=== PATIENT | male | born 1950 | race Caucasian/White ===

== ENCOUNTER 2022-10-18 11:43 | Outpatient (CLI) | payer MEDICARE, BC, SELFPAY ==
[2022-10-18 12:58] LABS: Chloride* 103 mmol/L (96-114); Sodium* 140 mmol/L (135-149)
[2022-10-18 13:01] LABS: Blood Urea Nitrogen* 23 mg/dL (7-30); Calcium* 9.5 mg/dL (8.4-10.6); Carbon Dioxide* 28 mmol/L (20-32); Cholesterol* 169 mg/dL (90-199); Estimated Glomerular Filt Rate 80 ml/min; Glucose* 88 mg/dL (60-115); Triglycerides* 102 mg/dL (40-149)
[2022-10-18 13:02] LABS: HDL Cholesterol* 59 mg/dL (>=40); LDL Cholesterol Calculated 90 mg/dL (<100)
[2022-10-19 17:43] LABS: Sex Hormone Binding Globulin 48 nmol/L (19-76); Testosterone, Adult Male 454 ng/dL (300-720); Testosterone, Free Calculation 68 pg/mL (47-244); Testosterone, Percentage Free 1.5 % (1.6-2.9)
== END 2022-10-18 11:44 | disposition home or self-care (01) ==
PROVIDERS: PCP Internal Medicine; Visit Provider Internal Medicine
DX: Z00.00 Encounter for general adult medical examination without abnormal findings (principal); I10 Essential (primary) hypertension; E78.5 Hyperlipidemia, unspecified; E34.9 Endocrine disorder, unspecified; E66.9 Obesity, unspecified; E80.4 Gilbert syndrome; F41.9 Anxiety disorder, unspecified
CPT/HCPCS: 80048; 80061; 84270; 84402; 84403

== ENCOUNTER 2022-10-23 10:19 | Outpatient (RCR) | payer MEDICARE, BC, SELFPAY ==
[2022-10-23 11:07] LABS: Basophils Absolute Auto 0.01 K/uL (0.00-0.30); Basophils Percent Auto 0.2 % (0.0-3.0); Eosinophils Absolute Auto 0.09 K/uL (0.00-0.50); Eosinophils Percent Auto 1.8 % (0.0-7.0); Hematocrit 46.2 % (37.0-53.0); Hemoglobin* 15.5 gm/dL (13.5-17.5); Immature Granulocytes Abs Auto 0.01 K/uL (0.00-0.30); Immature Granulocytes Pct Auto 0.2 %; Lymphocytes Absolute Auto 1.51 K/uL (0.90-2.90); Lymphocytes Percent Auto 30.8 % (20-44); Mean Corpuscular HGB Conc 34 gm/dL (32-36); Mean Corpuscular Hemoglobin 30 pg (26-34); Mean Corpuscular Volume 90 fL (80-100); Monocytes Percent Auto 9.6 % (0.0-11.0); Neutrophils Absolute Auto 2.81 K/uL (1.7-7.0); Neutrophils Percent Auto 57.4 % (42.0-72.0); Platelet Count* 156 K/uL (140-440); Red Blood Count 5.12 m/uL (4.30-5.90)
[2022-10-23 11:11] LABS: Slide Review Reflex No
[2022-10-23 11:40] LABS: Albumin* 4.2 g/dL (3.3-5.0); Chloride* 107 mmol/L (96-114); Potassium* 4.3 mmol/L (3.6-5.1); Sodium* 139 mmol/L (135-149)
[2022-10-23 11:42] LABS: Creatinine* 0.9 mg/dL (0.5-1.5); Estimated Glomerular Filt Rate 91 ml/min
[2022-10-23 11:43] LABS: Alanine Aminotransferase* 26 U/L (4-50); Alkaline Phosphatase* 59 U/L (40-150); Aspartate Amino Transferase* 35 U/L (12-35); Bilirubin Total* 1.4 mg/dL (0.1-1.5); Blood Urea Nitrogen* 24 mg/dL (7-30); Calcium* 8.8 mg/dL (8.4-10.6); Carbon Dioxide* 27 mmol/L (20-32); Glucose* 90 mg/dL (60-115); Total Protein* 6.7 g/dL (6.0-8.3)
== END 2023-04-21 23:59 | disposition home or self-care (01) ==
LOC: CCIC 10:19
PROVIDERS: PCP Internal Medicine; Referring Provider Internal Medicine; Visit Provider Internal Medicine Hematology & Oncology
DX: C20 Malignant neoplasm of rectum (principal); G62.9 Polyneuropathy, unspecified
CPT/HCPCS: 36415; 80053; 85025; 99212; 99214

== ENCOUNTER 2023-10-03 12:33 | Outpatient (RCR) | payer MEDICARE, BC, SELFPAY ==
[2023-10-03 13:15] LABS: Basophils Absolute Auto 0.02 K/uL (0.00-0.30); Basophils Percent Auto 0.3 % (0.0-3.0); Eosinophils Absolute Auto 0.06 K/uL (0.00-0.50); Eosinophils Percent Auto 0.9 % (0.0-7.0); Hematocrit 47.7 % (37.0-53.0); Hemoglobin* 15.8 gm/dL (13.5-17.5); Immature Granulocytes Abs Auto 0.01 K/uL (0.00-0.30); Immature Granulocytes Pct Auto 0.2 %; Lymphocytes Absolute Auto 1.52 K/uL (0.90-2.90); Lymphocytes Percent Auto 23.8 % (20-44); Mean Corpuscular HGB Conc 33 gm/dL (32-36); Mean Corpuscular Hemoglobin 30 pg (26-34); Mean Corpuscular Volume 91 fL (80-100); Monocytes Percent Auto 8.8 % (0.0-11.0); Neutrophils Absolute Auto 4.21 K/uL (1.7-7.0); Platelet Count* 199 K/uL (140-440); Red Blood Count 5.27 m/uL (4.30-5.90); White Blood Count* 6.38 K/uL (4.50-11.00)
[2023-10-03 13:19] LABS: Slide Review Reflex No
[2023-10-03 13:22] LABS: Albumin* 4.4 g/dL (3.3-5.0); Chloride* 105 mmol/L (96-114)
[2023-10-03 13:23] LABS: Potassium* 3.8 mmol/L (3.6-5.1); Sodium* 138 mmol/L (135-149)
[2023-10-03 13:25] LABS: Anion Gap 9 mEq/L (7-15); Aspartate Amino Transferase* 30 U/L (12-35); Bilirubin Total* 1.9 mg/dL (0.1-1.5); Carbon Dioxide* 24 mmol/L (20-32); Creatinine* 0.9 mg/dL (0.5-1.5); Estimated Glomerular Filt Rate 91 ml/min
[2023-10-03 13:26] LABS: Alanine Aminotransferase* 33 U/L (4-50); Alkaline Phosphatase* 60 U/L (40-150); Blood Urea Nitrogen* 21 mg/dL (7-30); Calcium* 9.1 mg/dL (8.4-10.6); Glucose* 85 mg/dL (60-115)
== END 2024-03-31 23:59 | disposition home or self-care (01) ==
LOC: CCIC 12:33
PROVIDERS: PCP Internal Medicine; Referring Provider Internal Medicine; Visit Provider Internal Medicine Hematology & Oncology
DX: C20 Malignant neoplasm of rectum (principal); G62.0 Drug-induced polyneuropathy; T45.1X5A Adverse effect of antineoplastic and immunosuppressive drugs, initial encounter; E80.4 Gilbert syndrome; R19.7 Diarrhea, unspecified
CPT/HCPCS: 36415; 80053; 85025; 99212; 99214

== ENCOUNTER 2023-10-17 07:34 | Outpatient (CLI) | payer MEDICARE, BC, SELFPAY ==
--- OUTSIDE RECORDS SUMMARY | 2023-10-18 14:46 | XMS_ITS | Continuity of Care Document ---
Author Name Unknown Organization Z [facility] Address [address] [place] [address] Phone Care Team Providers Care Senior Oracle Soa Developer Name Role Phone Unavailable Unavailable Unavailable Advance Directives Directive Yes / No Effective Date File Name No Information Encounters Encounter Description Practice Location Reason(s) For Visit Diagnoses Date Provider Providers Copied on Encounter Z [facility] [place], [address], [place], [address], [place] tel:[phone] [facility] No Information No Information Family History Family Member Type Diagnosis Age At Onset No Information Payers Payer name Insurance type Covered green party ID Authoriza tion(s) No Information Social History Type Description Quantity Date Captured Comments Sex Male Smoking Status No Information Chief Complaint And Reason For Visit No Information Reason For Referral Reason For Referral No Information History Of Present Illness Encounter Date Complaint History Of Prese nt Illness No Information Functional Status Date Functional Assessmen t No Information Instructions Date Instruction Additional Infor mation No Information Assessments Type Assessment Date No Information Patient Care Teams Name Effective Dates (start - stop) Status Members No Information
== END 2023-10-17 07:35 | disposition home or self-care (01) ==
LOC: NFLDREF 10-18 14:42
PROVIDERS: PCP Internal Medicine; Referring Provider Internal Medicine; Visit Provider Internal Medicine
DX: Z00.00 Encounter for general adult medical examination without abnormal findings (principal); E78.5 Hyperlipidemia, unspecified; E34.9 Endocrine disorder, unspecified; I10 Essential (primary) hypertension; E66.9 Obesity, unspecified; F41.9 Anxiety disorder, unspecified
CPT/HCPCS: 80048; 80061; 84270; 84402; 84403

== ENCOUNTER 2024-10-21 08:38 | Outpatient (RCR) | payer MEDICARE, BC, SELFPAY ==
[2024-10-21 09:03] LABS: Basophils Absolute Auto 0.02 K/uL (0.00-0.30); Basophils Percent Auto 0.4 % (0.0-3.0); Eosinophils Absolute Auto 0.09 K/uL (0.00-0.50); Eosinophils Percent Auto 1.7 % (0.0-7.0); Hematocrit* 48.3 % (37.0-53.0); Immature Granulocytes Abs Auto 0.01 K/uL (0.00-0.30); Immature Granulocytes Pct Auto 0.2 %; Lymphocytes Absolute Auto 1.48 K/uL (0.90-2.90); Lymphocytes Percent Auto 27.3 % (20-44); Mean Corpuscular HGB Conc 33 gm/dL (32-36); Mean Corpuscular Hemoglobin 30 pg (26-34); Mean Corpuscular Volume 90 fL (80-100); Monocytes Percent Auto 7.6 % (0.0-11.0); Neutrophils Absolute Auto 3.41 K/uL (1.7-7.0); Neutrophils Percent Auto 62.8 % (42.0-72.0); Platelet Count* 162 K/uL (140-440); RDW Coefficient of Variation % 12.9 % (11.5-15.5); Red Blood Count* 5.34 m/uL (4.30-5.90); White Blood Count* 5.42 K/uL (4.50-11.00)
[2024-10-21 09:07] LABS: Slide Review Reflex No
[2024-10-21 09:27] LABS: Chloride* 106 mmol/L (96-114)
[2024-10-21 09:28] LABS: Sodium* 142 mmol/L (135-149)
[2024-10-21 09:30] LABS: Alanine Aminotransferase* 25 U/L (4-50); Alkaline Phosphatase* 62 U/L (40-150); Anion Gap 5 mEq/L (7-15); Aspartate Amino Transferase* 30 U/L (12-35); Bilirubin Total* 1.3 mg/dL (0.1-1.5); Blood Urea Nitrogen* 23 mg/dL (7-30); Carbon Dioxide* 31 mmol/L (20-32); Creatinine* 1.1 mg/dL (0.5-1.5); Est. Creatinine Clearance* 67.59; Estimated Glomerular Filt Rate 71 ml/min; Total Protein* 6.7 g/dL (6.0-8.3)
[2024-10-21 09:31] LABS: Glucose* 94 mg/dL (60-115)
[2024-10-21 09:36] LABS: Albumin* 4.1 g/dL (3.3-5.0)
== END 2025-04-19 23:59 | disposition home or self-care (01) ==
LOC: CCIC 08:38
PROVIDERS: Physician Assistant; PCP Internal Medicine; Referring Provider Internal Medicine; Visit Provider Internal Medicine Hematology & Oncology
DX: C20 Malignant neoplasm of rectum (principal); E78.5 Hyperlipidemia, unspecified
CPT/HCPCS: 36415; 80053; 80061; 84270; 84402; 84403; 85025; 99213; G0463

== ENCOUNTER 2024-10-21 08:51 | Outpatient (CLI) | payer MEDICARE, BC, SELFPAY | END 2024-10-21 08:52 | disposition home or self-care (01) | LOC: NFLDREF 10-23 07:57 | PROVIDERS: PCP Internal Medicine; Referring Provider Internal Medicine; Visit Provider Internal Medicine | DX: E34.9 Endocrine disorder, unspecified (principal); E78.5 Hyperlipidemia, unspecified; I10 Essential (primary) hypertension | CPT/HCPCS: 36415; 80048; 80053; 80061; 84270; 84402; 84403; 85025; G0463 ==

== ENCOUNTER 2025-06-04 12:05 | Emergency (ER) | payer MEDICARE, BC, SELFPAY ==
--- OUTSIDE RECORDS SUMMARY | 2025-06-04 12:07 | XMS_ITS | Clinical Summary ---
Author Organization [facility] Address [address] , [address] [place] [address] Phone Care Team Providers Care Supervisor Tank Cleaning Name Role Phone [facility] Unavailable Unava ilable Conditions or Problems Problem Name Problem Code Onset Date Status Entry Date Provider Comment Standard Description Annotate Foot pain, right 46543516 (SNOMED CT) 11/27 Active 11/27 Jakob Deluca MD Foot pain Obstructive sleep apnea (mild/mod; AHI 6; RDI 21; taryn 88%) 31345437 (SNOMED CT) 04/23 Active 04/24 Lauro Villalba Jr, MD Obstructive sleep apnea syndrome Sleep maintenance insomnia G47.00 (ICD-10-C M) 04/23 Active 04/24 Lauro Villalba Jr, MD Insomnia, unspecified Snoring 95353494 (SNOMED CT) 04/23 Active 04/24 Lauro Villalba Jr, MD Snoring DRUG TOXICITY POLYNEUROPATHY G62.0 (ICD-10-C M) 06/12 Active 06/12 Jakob Deluca MD Drug-induced polyneuropathy Medications Medication Instructions Start Date Stop Date Generic Name [facility] Provider GABAPENTIN 600 MG TABS 1po tid GABAPENTIN 48178678077 Chloe Espinal RN BUSPIRONE HCL 5 MG TABS 1 pill 3 times daily BUSPIRONE HCL 80103853533 Jakob Deluca MD KETAMINE TOPICAL OINTMENT 8% apply to painful area 3-4 times daily KETAMINE TOPICAL OINTMENT 8% Jakob Deluca MD GABAPENTIN 600 MG TABS 1 po four times per day GABAPENTIN 52179433007 Jakob Deluca MD NORTRIPTYLINE HCL 10 MG CAPS Week #1 take 1 in PM, then Week #2 and on take 2 in PM NORTRIPTYLINE HCL 11748465625 Jakob Deluca MD KETAMINE TOPICAL OINTMENT 8% apply to painful area 3-4 times daily KETAMINE TOPICAL OINTMENT 8% Jakob Deluca MD NORTRIPTYLINE HCL 10 MG CAPS Week #1 take 1 in PM, then Week #2 and on take 2 in PM NORTRIPTYLINE HCL [id number] Jakob Deluca MD ALPHA LIPOIC ACID CAPS ALPHA-LIPOIC ACID CAPS 36941847784 Jakob Deluca MD GABAPENTIN 600 MG TABS 6 po daily GABAPENTIN 28443707250 Jakob Deluca MD LABETALOL HCL 200 MG TABS 1/2 pill twice daily LABETALOL HCL 16851296971 Jakob Deluca MD FOLIC ACID 400 MCG 1 daily FOLIC ACID 400 MCG Jakob Deulca MD DIPHENOXYLATE-AT ROPINE 2.5-0.025 MG TABS 2 in AM, 1 in PM and 1 at hs DIPHENOXYLATE-AT ROPINE 42008299171 Jakob Deluca MD LABETALOL HCL 200 MG TABS 1/2 pill twice daily LABETALOL HCL 90933725515 Jakob Deluca MD SIMVASTATIN 20 MG TABS 1 daily SIMVASTATIN 35369046638 Jakob Deluca MD LIPITOR TABS ATORVASTATIN CALCIUM TABS 67870772344 Jakob Deluca MD LISINOPRIL 10 MG TABS 1 daily LISINOPRIL 46195299539 Jakob Deluca MD LABETALOL HCL TABS LABETALOL HCL TABS 78380633946 Jakob Deluca MD GABAPENTIN 600 MG TABS 8 po daily GABAPENTIN 41340683439 Jakob Deluca MD NORMYDINE NORMYDINE Jakob Deluca MD LABETALOL HCL TABS LABETALOL HCL TABS 12894666610 Jakob Deluca MD TRIAMTERENE-HCTZ 37.5-25 MG TABS every other day TRIAMTERENE-HCTZ 30157775083 Jakob Deluca MD LIDODERM 5 % PTCH apply 1/2 to 1 patch on each foot LIDOCAINE 74635088778 Jakob Deluca MD GABAPENTIN 300 MG CAPS 3 po tid GABAPENTIN 61995675171 Jakob Deluca MD VOLTAREN 1 % GEL apply 1 - 2 grams to painful areas on each foot up to 4 times a day DICLOFENAC SODIUM 76628887414 Jakob Deluca MD VOLTAREN 1 % GEL apply 1 - 2 grams to painful areas on each foot up to 4 times a day DICLOFENAC SODIUM 45714392230 Jakob Deluca MD TRAZODONE HCL 100 MG TABS 2 po qhs TRAZODONE HCL 46927138894 Jakob Deluca MD GABAPENTIN 600 MG TABS 2 po tid GABAPENTIN 60412011314 Jakob Deluca MD LIDODERM 5 % PTCH apply 1/2 to 1 patch on each foot LIDOCAINE 93314812035 Jakob Deluca MD GABAPENTIN 600 MG TABS 1 po qid GABAPENTIN 88404603651 Jakob Deluca MD GABAPENTIN 300 MG CAPS 3 po tid GABAPENTIN 46032397178 Jakob Deluca MD ASPIRIN 81 MG TBEC 1 daily ASPIRIN 61266293367 Jakob Deluca MD TESTOSTERONE ENANTHATE SOLN TESTOSTERONE ENANTHATE OIL 04949706256 Jakob Deluca MD NEURONTIN 300 MG CAPS 4 po tid GABAPENTIN 18386047103 Jakob Deluca MD NORTRIPTYLINE HCL 10 MG CAPS Week #1 take 1 po qhs, then Week #2 take 2 po qhs, Week #3 take 3 po qhs, and Week #4 and on take 4 po qhs. NORTRIPTYLINE HCL 43349177050 Jakob Deluca MD CYMBALTA 20 MG CPEP Week #1 take 1 po qhs, then Week #2 take 2 po qhs, then Week #3 and on take 3 po qhs DULOXETINE HCL 68801861414 Jakob Deluca MD GABAPENTIN 600 MG TABS 1 po qid GABAPENTIN 63131715077 Jakob Deluca MD NORTRIPTYLINE HCL 10 MG CAPS Week #1 take 1 po qhs, then Week #2 take 2 po qhs, Week #3 take 3 po qhs, and Week #4 and on take 4 po qhs. NORTRIPTYLINE HCL 95870459880 Jakob Deluca MD NEURONTIN 300 MG CAPS 4 po tid GABAPENTIN 26648515288 Jakob Deluca MD NORMYDINE NORMSHIRA Deluca MD TRIAMTERENE-HCTZ 37.5-25 MG TABS normadyne TRIAMTERENE-HCTZ 53105698278 Jakob Deluca MD LIPITOR TABS ATORVASTATIN CALCIUM TABS 17205856876 Jakob Deluca MD VIAGRA 50 MG TABS 1 po 30 - 60 minutes prior to intercourse SILDENAFIL CITRATE 90420109535 Jakob Deluca MD LEXAPRO 10 MG TABS 1 po daily ESCITALOPRAM OXALATE 04181462556 Jakob Deluca MD CYMBALTA 20 MG CPEP Week #1 take 1 po qhs, then Week #2 take 2 po qhs, then Week #3 and on take 3 po qhs DULOXETINE HCL 86210867354 Jakob Deluca MD VIAGRA 50 MG TABS 1 po 30 - 60 minutes prior to intercourse SILDENAFIL CITRATE 35642182609 Jakob Deluca MD NEURONTIN 300 MG CAPS 3 po tid GABAPENTIN 71331502562 Jakob Deluca MD NEURONTIN 300 MG CAPS 2 po tid GABAPENTIN 83396853580 Jakob Deluca MD LEXAPRO 10 MG TABS 1 po daily ESCITALOPRAM OXALATE 31306269193 Jakob Deluca MD CYMBALTA 30 MG CPEP 1 po qhs for 2 weeks DULOXETINE HCL 79680242533 Chloe Espinal RN CYMBALTA 60 MG CPEP 1 po qhs beginning in Week #3 and thereafter DULOXETINE HCL 31739329739 Jakob Deluca MD CYMBALTA 30 MG CPEP 1 po qhs for 2 weeks DULOXETINE HCL 22105915958 Jakob Deluca MD Medications Administered No information available. Allergies, Adverse Reactions, Alerts Allergy Name Reaction Description Start Date Severity Statu s Provider LATEX Critical Active Jakob Deluca MD Results Date Name Value Unit Range Flag Description Rx Refill: eRx Request for G ABAPENTIN 600MG [facility]_RR [id number] 24Z`GABAPENTIN 600MG```720``XAVI E 8 TABLETS DAILY DIRECTED`Generic For:*NEURONTIN 600MG TABS Generic For:*NEURONTIN 600MG TABS`4`0`3876500 2`[id number]`[facility] #*`[phone]` [id number]`` B e-scripts messen tiki refill request Internal Other: Authorizatio n - OBS PTSTAUTHDT 1 N PT Startin g Authorization Date Office Visit: NSLE SMOK STATUS Never smoker 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 NANCIE Fall Risk Screening completed. Fall risk assess ment MEDS REVIEW Done Documenta tion of current medications (procedure) Internal Other: Verbal Autho rization/Emergency Contact - OBS VERBAL_EMER DONE Verbal au thorization and emergency contact Internal Other: Authorizatio n - OBS [id number] Yes GE use only - for Link[employer]ic import when terms are not otherwise specified HIECONSENT Yes Consent To Release information to the [employer] Information [employer] ([employer]) Plan of Care Type Date Detail Pending order MRI-Lumbar W/WO Pending order Physical Therapy Pending order Follow up Pending order Follow up Pending Order exclud ed from report: Pending order Other Referral Pending order Follow up Pending order Patient Instruct ions Pending order Other Referral Pending Order exclud ed from report: Pending order Follow up Pending order Sleep Study - AP NA Pending order Consult Pending order Follow up Patient education Buspirone%20(O ral)%20(Tablet) Procedures Code Procedure Name Date Entry Date [id number] MRI-Lumbar W/WO ORDERS Physical Therapy ORDERS Follow up ORDERS Follow up [facility]-[id number] Documentation of current medicatio ns ORDERS Follow up ORDERS Patient Instructions ORDERS Follow up SCT-[id number] Documentation of current medicatio ns SCT-[id number] Other Referral SCT-[id number] Other Referral CPT-80764 PSG, with CPAP - 6yrs or older ([id number]) 20 20/04/20 ORDERS Sleep Study - APNA 2 SCT-[id number] Documentation of current medicatio ns SCT-520552530 Consult SCT-[id number] Documentation of current medicatio ns SCT-[id number] Documentation of current medicatio ns SCT-[id number] Documentation of current medicatio ns A9579 ProHance Nasir-based MR Contrast, 20 ml via l CPT-24103 MRI Pelvis (With & Without Contrast) 2010 CPT-84995 MRI Lumbar (With & Without Contrast) 2010 Vital Signs Date Name Value Unit Description Height 73 [in_us] height E&M BMI (Body Mass Index) 30.19 kg/m2 Bod y Mass Index (Ratio) BP Diastolic 72 mm[Hg] blood pressu re, diastolic BP Systolic 118 mm[Hg] blood pressur e, systolic Respiratory Rate 16 /min respirat ory rate E&M Weight Measured 228 [lb_av] weight E& M Weight Measured 228 [lb_av] weight E& M Heart Rate 60 /min pulse rate Immunizations No information available. Advance Directives No information available.
--- OUTSIDE RECORDS SUMMARY | 2025-06-04 12:08 | XMS_ITS | Clinical Summary ---
Author Organization [facility] Address [address] [place] [address] Care Team Providers Care Speech/Language Therapist Name Role Phone Ksenia Mcedrmott MD Primary Care Provider [phone] Allergies Active Allergy Reactions Criticality Noted Date Comments Adhesive Tape Rash 10/17/2005 Latex Rash High 09/11/2021 Penicillins Rash High 06/14/2005 Pt. states he has taken amoxicillin Medications simvastatin (ZOCOR) 20 mg tablet Take 20 mg by mouth at bedtime. Active CYANOCOBALAMIN, VITAMIN B-12, (VITAMIN B-12 ORAL) Take by mouth. Activ e aspirin chewable 81 mg chewable tabletIndication s:myocardial infarction prevention Take 81 mg by mouth once daily with a meal. Indications: MYOCARDIAL INFARCTION PREVENTION Active vitamin D3-vitamin K2, MK4, 1,000-100 unit-mcg tab Take 1 tablet by mouth once daily. 0 7 Active losartan (COZAAR) 50 mg tablet Take 50 mg by mouth once daily. 10 8 Active Testosterone 50 mg/5 gram (1 %) gel APPLY 5GM (1 TUBE) TO SHOULDERS & UPPER ARM EVERY MORNING 5 8 Active triamterene-hydr ochlorothiazide, 37.5-25 mg, (MAXZIDE-25) 37.5-25 mg tablet TAKE ONE TABLET EVERY OTHER DAY FOR BLOOD PRESSURE 2 8 Active Elevated Toilet Seat with ArmsIndications: Muscle tear For home use. 1 Device 1 Active latanoprost (XALATAN) 0.005 % ophthalmic solution Active escitalopram oxalate (LEXAPRO) 10 mg tablet 1 Active cholecalciferol (VITAMIN D3) 1,000 unit tablet once daily. Active tamsulosin (FLOMAX) 0.4 mg capsule Take 1 Capsule by mouth once daily. 3 Active LORazepam (ATIVAN) 0.5 mg tab TAKE ONE TABLET BY MOUTH TWICE DAILY NEEDED FOR ANXIETY MAY TAKE 1 ADDITIONAL TABLET AT BEDTIME NEEDED Active tolterodine (DETROL) 2 mg tablet Take 1 tablet twice a day by oral route for 90 days. 3 Active polyethylene glycol-electroly te (GOLYTELY) 236-22.74-6.74 -5.86 gram suspensionIndica tions:Encounter for screening colonoscopy Drink 2 liters (half the bottle) the day before colonoscopy and 2 liters (remaining prep) 6 hours prior to colonoscopy appointment. 4000 mL 4 Active omeprazole (PRILOSEC) 20 mg Delayed-Release capsuleIndicatio ns:Chronic diarrhea,H. pylori infection Take 1 Capsule (20 mg) by mouth two times daily before meals. 10 Capsule 3 4 Active Active Problems Problem Noted Date Diagnosed Date H. 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 09/17/2006 Polyneuropathy in other diseases classified else where 08/07/2006 Overview (09/19/2006): due to ChemoRx Malignant neoplasm of rectum 10/17/2005 Overview (01/24/2024): presented for surgical resection 10/17/2005 s/p Radiation Therapy & Chemo Rx Colonoscopy 01/2024 SSA, repeat in 5 years Resolved Problems Problem Noted Date Diagnosed Date Resolved Date Unspecified intestinal obstruction 08/14/2006 09/18/2006 Overview (08/14/2006): presented with pain, nausea & vomiting 08/13/2006 Fitting and adjustment of ot her gastrointestinal appliance and device 08/07/2006 Overview (08/07/2006): Ileostomy take down 08/07/2006 Immunizations Immunization Administration Dates Next Due COVID-19 vaccine (Moderna 10 0mcg/0.5mL) PF, MDV 08/30/2021,2021,12/16/2020 Influenza A (H1N1), Inactiva jennifer (Age >=3 Years) 09/04/2011 Influenza, High-dose Quadriv alent Inactivated 10/05/2021,08/31/2020 Influenza, IIV4 10/05/2021,08/31/2020,09/04/2011 Pneumococcal conj 13-Valent (Prevnar 13) 021 Tdap 10/29/2018 Zoster (Shingrix-RZV, recombinant) 10/30/2020, Zoster (Zostavax-ZVL, live) 04/25/2014 Family History Medical History Relation Name Comments Heart Disease Father in his sl eep 10/15/2005! Cancer-breast Mother at age 82 Good Health Sister age 52 as of Relation Name Status Comments Father Mother Sister Social History Tobacco Use Types Packs/Day Years Used Date Smoking Tobacco: Never Smokeless Tobacco: Never Tobacco Cessation:Counseling Given: Yes Alcohol Use Standard Drinks/Week Comments Yes 0 (1 standard drink = 0.6 oz pur e alcohol) socially Social Connections Answer Date Recorded Frequency of Communication with Friends and Fami ly Not on file 11/03/2021 Financial Resource Strain Answer Date R ecorded Difficulty of Paying Living Expenses Not on file 11/03/2021 Difficulty of Paying Living Expenses Not on file 11/03/2021 Sex and Gender Information Value Date Recorded Sex Assigned at Not on file Legal Sex Male 5:25 AM BRIEF WRITER Gender Identity Not on file Sexual Orientation Not on file Occupation Industry Job Start Date Job End Date [employer] Not on file Not on file Not on file Obstetrics History Last Filed Vital Signs Vital Sign Reading Time Taken Comments Blood Pressure 152/92 02/19/2024 12:59 PM CDT Pulse 81 02/19/2024 12:59 PM CDT Temperature 36.2 C (97.2 F) 01/18/2021 1:48 PM CDT Respiratory Rate 14 01/21/2024 11:32 AM CDT Oxygen Saturation 98% 02/19/2024 12:59 PM CDT Inhaled Oxygen Concentration - - Weight 104.8 kg (231 lb) 02/19/2024 12:59 PM CDT Height 188 cm (6' 2) 01/18/2021 1:48 PM CDT Body Mass Index 29.66 01/18/2021 1:48 PM CDT Plan of Treatment Health Maintenance Due Date Last Done Comments Depression screening for age 12+ 1963 Hepatitis C screening for age 18-79 1969 Lipids for age 45-75 09/17/2011 09/17/2006 Medicare Wellness for age 65+ 01/14/2016 BMI (ht and wt on same day) for age 18+ 01/18/2022 01/18/2021, 04/17/2018, 10/21/2017 Pneumococcal series for age 50+ (2 of 2 - PPSV23) 10/05/2022 10/05/2021 COVID-19 vaccine series ( season) 2024 08/01/2023, 08/15/2022, 02/10/2022, Additional history exists Influenza Vaccine (#1) 2025 , 08/31/2020, 09/04/2011 RSV vaccine for adults or (1 - 1-dose 75+ series) 2026 Tetanus booster 10/29/2028 10/29/2018 Colonoscopy through age 75 01/20/202901/20, 01/21/2024, 01/21/2024, Additional history exists Zoster (shingles) series for age 50+ Completed 10/30/2020, 08/31/2020, 04/25/2014 Hepatitis B series for 19+ Aged Out N o longer eligible based on patient's age to complete this topic Medical Devices Implanted Type Area Research Statistician Device Identifier Shelf Expiration Date Model / Serial / Lot Pump Pain On-Q [id number] - [id number] Implanted:Qty: 1 on 10/17/2005 at [facility] [id number]# / / [id number] Procedures Procedure Name Priority Date/Time Associated Diagnosis Comments COLONOSCOPY SCREENING Routine 01/21/2024 9:53 AM CDT Chronic diarrhea Polyp of colon, unspecified part of colon, unspecified type History of rectal cancer LIPID PANEL Today 09/17/2006 12:28 PM BRIEF WRITER from Last 3 Months or Most Recently Relevant to Health Maintenance Results * COLONOSCOPY (01/21/2024 10:02 AM CDT) 01/21/2024 10:0 2 AM CDT Narrative Transcriptions Pierre Schultz MD - 01/21/2024 11:21 AM CDT Patient Name: Gregorio Cagle Procedure Date: 01/21/2024 Gender: Male Date of : 1950 Admit Type: Outpatient Procedure: Colonoscopy Proceduralist: Pierre Schultz MD , Gwen Fields, RN(Nurse), Kathy Reis (Nurse) Referring MD: Pierre Schultz Indications/Pre-Op Diagnosis: High risk colon cancer surveillance:Personal history of colon cancer, Last colonoscopy: November 2019, Incidental - Chronicdiarrhea Medications: Fentanyl 100 micrograms IV, Midazolam 4 mgIV, The level of sedation administered wasmoderate Procedure Description: The patient had risks, benefits and alternatives explained to andgave informed consent. The patient had a stable cardiopulmonary status and judged an adequate candidate for conscious sedation. The endoscope [id number] was passed through the anus andadvanced to 8 cm into the ileum. The colonoscopy was performed without difficulty. The patient tolerated the procedure well. The quality ofthe bowel preparation was good. The terminal ileum, ileocecal valve, appendiceal orifice, and rectum were photographed. Complications: No immediate complications. Estimated Blood Loss & Specimen: Estimated blood loss: none. Specimen collected - Yes and sent to Laboratory Findings: The perianal and digital rectal examinations were normal. The terminal ileum appeared normal. Biopsies were taken with a cold forceps for histology. A 1 mm polyp was found in the cecum appendiceal orifice. The polypwas sessile. The polyp was removed with a cold biopsy forceps. Resectionand retrieval were complete. A 3 mm polyp was found in the ascending colon. The polyp was sessile. The polyp was removed with a cold biopsy forceps. Resection and retrieval were complete. Scattered medium-mouthed and small-mouthed diverticula were found inthe sigmoid colon, descending colon and ascending colon. There was evidence of a prior end-to-end colo-colonic anastomosis inthe rectum. This was patent and was characterized by healthy appearing mucosa. Biopsies for histology were taken with a cold forceps from the entire colon for evaluation of microscopic colitis. The exam was otherwise without abnormality. Impressions/Post-Op Diagnosis: - The examined portion of the ileum was normal. Biopsied. - One 1 mm polyp in the cecum at the appendiceal orifice, removedwith a cold biopsy forceps. Resected and retrieved. - One 3 mm polyp in the ascending colon, removed with a cold biopsy forceps. Resected and retrieved. - Diverticulosis in the sigmoid colon, in the descending colon and in the ascending colon. - Patent end-to-end colo-colonic anastomosis, characterized byhealthy appearing mucosa. - The examination was otherwise normal. - Biopsies were taken with a cold forceps from the entire colon for evaluation of microscopic colitis. Recommendation: - Patient has a contact number available for emergencies. The signsand symptoms of potential delayed complications were discussed with the patient. Return to normal activities tomorrow. Written discharge instructions were provided to the patient. - Resume previous diet. - Continue present medications. - Await pathology results. - Repeat colonoscopy is recommended. The colonoscopy date will be determined after pathology results from today's exam become available for review. Moderate Sedation: A time out was performed before the procedure. Moderate (conscious) sedation was administered by the endoscopy nurse and supervised bythe endoscopist. The following parameters were monitored: oxygensaturation, heart rate, blood pressure, EKG, CO2, respiratory rate, adequacy of pulmonary ventilation and reponse to care. Please refer to the patient's medical record flowsheets and nursing notes for moderate sedation details. Total physician intraservice time was 35 minutes. Pierre Schultz MD 01/21/2024 11:21:09 AM This report has been signed electronically. Note Initiated On: 01/21/2024 10:02 AM Scope In: 10:40:22 AM Scope Withdrawal Time 0 hours 22 minutes 46 seconds Scope Out: 11:10:19 AM us Pierre Schultz MD PROCEDURE ORD Final Res ult * (ABNORMAL) LIPID PANEL (09/17/2006 12:28 PM BRIEF WRITER) CHOLESTEROL,TOTAL 171 110 - 199 mg/dL [facility] TRIGLYCERIDES 119 40 - 149 mg/dL [facility] HDL CHOLESTEROL 31(L) >40 mg/dL [facility] CHOL/HDL RATIO 5.52(H) <4.51 [facility] LDL CHOLESTEROL 116 <131 mg/dL [facility] PATIENT STATUS Fasting [facility] Blood specimen (specimen) BLOOD SPECIMEN / Unknown 09/17/2006 12:28 PM BRIEF WRITER 09/17/2006 12:19 PM BRIEF WRITER us Lm Vega MD CHEMISTRY Final Result [facility] INTERNAL ZIP [address] [address] from Last 3 Months or Most Recently Relevant to Health Maintenance Insurance MEDICARE PART A HB ONLY MEDICARE PART B HB ONLY MEDICARE PB ONLY [facility] MEDICARE PART B HB ONLY [facility] Member Subscriber Plan / Payer (Ef fective 2013-Present) Name:Gregorio Cagle Relation to Subscriber:Self Name:Gregorio Cagle Payer ID:[id number] (NAIC) Group ID:[id number] Type:Not on file Address: [address] [place] [address] [facility] [employer] [place] Advance Directives * Full Code (Latest Code Status on File) Date Activated Date Inactivated Comments 11/16/2014 12:44 PM 11/16/2014 4:02 PM * Full Code Date Activated Date Inactivated Comments 01/18/2010 1:44 PM 01/21/2010 4:23 PM * Full Code Date Activated Date Inactivated Comments 11/15/2006 2:15 PM 11/16/2006 2:10 AM * Full Code Date Activated Date Inactivated Comments 09/17/2006 8:38 PM 09/20/2006 3:53 PM * Full Code Date Activated Date Inactivated Comments 09/17/2006 11:09 AM 09/17/2006 8:38 PM Care Teams Speech/Language Therapist Relationship Specialty Start Date End Date Ksenia Mcdermott MD [address] [place] [address] PCP - General Internal Medicine 12/11/23
[2025-06-04 12:15] VITALS: BP 144/94; PULSE 94; RESP 20; TEMP 36.1; O2SAT 96; BMI 29.5
--- NOTE | 2025-06-04 12:21 | ED_ITS ---
HPI - General Adult General Date Seen: 06/04/25 Chief complaint: Extremity Pain/Injury, Lower Stated complaint: Chainsaw lac L leg Time Seen by Provider: 06/04/25 12:10 History of Present Illness HPI narrative: 75-year-old gentleman with history of job air syndrome, hyperlipidemia, elevated BMI, BPH, sleep apnea presenting to the ER today with a chain saw injury to his left lower extremity. He was working in his backyard with a chain saw to clear some sticks. Was walking across the back yd when he just lost his balance and brought his hands down accidentally struck his left anterior thigh with a chainsaw as it was running. He tore his pants and suffered injury to his left thigh. Initially when he looked T-cell large area that was covered for blood. He was able to bear weight. He is able to drive here in the car by private car with his . He is not anticoagulated. He is up-to-date on tetanus. Related Data Home Medications ?Medication ?Instructions ?Recorded ?Confirmed cholecalciferol (vitamin D3) 25 1,000 unit PO DAILY 10/26/24 mcg (1,000 unit) tablet tamsulosin 0.4 mg capsule 0.4 mg PO DAILY 10/18/22 acetaminophen 500 mg tablet 500 mg PO Q6H PRN 06/17/23 10/26/24 (Tylenol Extra Strength) naproxen sodium 220 mg tablet 220 mg PO BID PRN 10/26/24 (Aleve) latanoprost 0.005 % eye drops 1 drp ophthalmic (eye) Q PM 10/03/23 10/26/24 aspirin 81 mg chewable tablet 81 mg PO DAILY 10/21/23 10/26/24 Previous Rx's ?Medication ?Instructions ?Recorded escitalopram oxalate 10 mg tablet 10 mg PO .Bedtime #9 0 tabs 10/26/24 losartan 50 mg tablet 50 mg PO DAILY #90 tabs 10/05 01/25 simvastatin 20 mg tablet 20 mg PO .Bedtime #90 tabs 1 12/27/23 triamterene 37.5 1 tab PO DAILY #90 tabs 10/05 01/25 mg-hydrochlorothiazide 25 mg tablet testosterone 50 mg/5 gram (1 %) 50 mg transdermal QAM #150 grams 05/17/25 transdermal gel Allergies Allergy/AdvReac Type Severity Reaction Status Date / Time Penicillins Allergy Verified 10/26/24 08:52 latex AdvReac Verified 10/26/24 08:52 [facility] Medical History History of malignant neoplasm of anus ?Z85.048 - Personal history of other malignant neoplasm of rectum, rectosigmoid junction, and anus (ICD-10) Surgical History Hx of appendectomy ?Z90.49 - Acquired absence of other specified parts of digestive tract (ICD- 10) H/O left knee surgery (01/19/21) ?Z98.890 - Other specified postprocedural states (ICD-10) H/O left knee surgery (03/28/21) ?Z98.890 - Other specified postprocedural states (ICD-10) Social History (Updated 10/21/23 @ 13:27 by Leanne Felipe ~ [facility]) What is your current living situation?: I presently have a place to live Problems where you live: no known problems In the past 12 months, utilities in danger of being shut off: no In past 12 months, lack of transportation kept you from medical appts, meetings, work, or getting things needed for daily living: no In the past 12 mos, have been you worried that your food would run out before you had money to buy more?: never true In the past 12 mos, the food you bought just didn't last and you didn't have money to buy more?: never true Smoking Status: Never smoker How often does anyone, including family, friends and others, physically hurt you : never How often does anyone, including family, friends and others, insult or talk down to you: never How often does anyone, including family, friends and others, threaten you with harm: never How often does anyone, including family, friends and others, scream or curse at you: never Exam Narrative: Exam Narrative: Constitutional: Appears well-developed and well-nourished. Alert. Conversant. Non toxic. Very polite. HENT: Head: Atraumatic. Nose: Nose normal. Mouth/Throat: Oral mucosa is clear and moist. no trismus. Pharynx normal. Tonsils symmetric. No tonsillar enlargement, erythema, or exudate. Eyes: Conjunctivae normal. EOM normal. Pupils equal, round, and reactive to light. No scleral icterus. Neck: Normal range of motion. Neck supple. No tracheal deviation present. Cardiovascular: Normal pink well perfused skin. No active bleeding. Pulmonary/Chest: Effort normal. No stridor. No respiratory distress. Musculoskeletal: RUE: Normal range of motion. No tenderness. No deformity LUE: Normal range of motion. No tenderness. No deformity RLE: Normal range of motion. No edema. No tenderness. No deformity LLE: There is a chainsaw wound to left anterior thigh on the distal 11/07. Fortunately this is a very superficial wound. There are multiple parallel linear superficial abrasions on the skin. One of them barely penetrates to the dermis but the rest of him to not penetrate all the way through the dermis. No active bleeding. No pulsatile bleeding. It does not penetrate through to the quad muscle or down to the deeper tissues. Neurovascularly intact. Normal range of motion in his hip and knee. No edema. No tenderness. No deformity Lymph: No cervical adenopathy. Neurological: Alert and oriented to person, place, and time. Normal strength. CN II-VII intact. No sensory deficit. GCS eye subscore is 4. GCS verbal subscore is 5. GCS motor subscore is 6. Normal coordination Skin: Skin is warm and dry. No rash noted. No pallor. Normal capillary refill. Psychiatric: Normal mood. Normal affect. Const: Vital Signs, click to edit/add: Vital Signs - 24 hr 06/04/25 12:15 Temperature 97.0 F L Pulse Rate [Pulse Oximeter] 94 Respiratory Rate 20 Blood Pressure [Ri ght Upper Arm] 144/94 H Pulse Oximetry 96 Oxygen Delivery Me thod Room Air Course Vital Signs Vital signs: Initial Vital Signs Temperature 97.0 F L 06/04/25 12:15 Temperature Source Temporal Artery Scan 06/04/25 12:15 Pulse Rate 94 06/04/25 12:15 Respiratory Rate 20 06/04/25 12:15 Blood Pressure 144/94 H 06/04/25 12:15 Blood Pressure Mean 110 H 06/04/25 12:15 Blood Pressure Position Sitting 06/04/25 12:15 Pulse Oximetry 96 06/04/25 12:15 Oxygen Delivery Method Room Air 06/04/25 12:15 Vital Signs Temperature 97.0 F L 06/04/25 12:15 Pulse Rate 94 06/04/25 12:15 Respiratory Rate 20 06/04/25 12:15 Blood Pressure 144/94 H 06/04/25 12:15 Pulse Oximetry 96 06/04/25 12:15 Oxygen Delivery Method Room Air 06/04/25 12:15 Temperature 97.0 F L 06/04/25 12:15 Pulse Rate 94 06/04/25 12:15 Respiratory Rate 20 06/04/25 12:15 Blood Pressure 144/94 H 06/04/25 12:15 Pulse Oximetry 96 06/04/25 12:15 Oxygen Delivery Method Room Air 06/04/25 12:15 Medical Decision Making MDM Narrative Medical decision making narrative: Findings and exam are consistent with an a accidental chainsaw wound to his left anterior distal thigh. Although he initially saw all large bloody area at home, after we were able to do wound care here, it turns out that he actually has multiple superficial parallel linear lacerations probably caused by the edge of the teeth on the chain saw blade. Miraculously, this does not really penetrate through the dermis and does not involve his quad muscle or deeper structures.. There is no evidence at this time to suggest any associated fracture or foreign body. There is no evidence to suggest tendon or arterial injury and patient is neurologically in tact. In discussion with the patient his , UA agree that this point the wound will heal fine without sutures.. Indications to seek urgent reevaluation and signs of infection (including but not limited to increasing pain, redness, swelling, fevers, and drainage) were reviewed. Tetanus is up-to-date. This is a clean and non-contaminated wound in which prophylactic antibiotics are not indicated. An understanding of the discharge instructions and need for follow up were verbally confirmed. Discharge Plan Discharge Clinical Impression: Contact with chainsaw as cause of accidental injury Patient Disposition: Home, Self-Care Condition: Stable Instructions: Laceration Without Closure (ED) Additional Instructions: As we discussed, we think these wounds will heal well without needing stitches. You were very jhoan! To care for the wounds, keep the dressing on today and keep the wound clean and covered and dry. Tomorrow you can take the dressing off and wash gently with gauze soaked in warm water (just enough to get scabs or external crusting off). After the wound is clean, gently dry it and then reapply antibiotic ointment and other non adherent dressing. Cover the non adherent dressing with gauze and wrap up her leg to protect the wound. Try not to get the wound submerged under water for 5 days. Monitor the wound carefully. If you notice unusual redness, spreading redness up or down your leg, fever, worsening pain, pus draining from the wound, or if you have any concerns please come back to the ER right away to be rechecked. Prescriptions: No Action cholecalciferol (vitamin D3) 25 mcg (1,000 unit) tablet 1,000 unit PO DAILY tamsulosin 0.4 mg capsule 0.4 mg PO DAILY aspirin 81 mg tablet,chewable 81 mg PO DAILY acetaminophen [Tylenol Extra Strength] 500 mg tablet 500 mg PO Q6H PRN naproxen sodium [Aleve] 220 mg tablet 220 mg PO BID PRN latanoprost 0.005 % drops 1 drp ophthalmic (eye) QPM losartan 50 mg tablet 50 mg PO DAILY Qty: 90 3RF simvastatin 20 mg tablet 20 mg PO .Bedtime Qty: 90 3RF triamterene-hydrochlorothiazid 37.5-25 mg tablet 1 tab PO DAILY Qty: 90 3RF Rx Instructions: Take one tab by mouth every other day escitalopram oxalate 10 mg tablet 10 mg PO .Bedtime Qty: 90 3RF testosterone 50 mg/5 gram (1 %) gel 50 mg transdermal QAM Qty: 150 5RF Follow Up/Referrals: Ksenia Mcdermott MD [Primary Care Provider, Internal Medicine] Stand Alone Forms: [employer] Info Instructions
--- OUTSIDE RECORDS SUMMARY | 2025-06-04 12:37 | XMS_ITS | Clinical Summary ---
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 (ICD-10-C M) 04/23 Active 04/24 Lauro Villalba Jr, MD Insomnia, unspecified Snoring 07703912 (SNOMED CT) 04/23 Active 04/24 Lauro Villalba Jr, MD Snoring DRUG TOXICITY POLYNEUROPATHY G62.0 (ICD-10-C M) 06/12 Active 06/12 Jakob Deluca MD Drug-induced polyneuropathy Medications Medication Instructions Start Date Stop Date Generic Name [facility] Provider GABAPENTIN 600 MG TABS 1po tid GABAPENTIN [id number] Chloe Espinal RN BUSPIRONE HCL 5 MG TABS 1 pill 3 times daily BUSPIRONE HCL 84197842048 Jakob Deluca MD KETAMINE TOPICAL OINTMENT 8% apply to painful area 3-4 times daily KETAMINE TOPICAL OINTMENT 8% Jakob Deluca MD GABAPENTIN 600 MG TABS 1 po four times per day GABAPENTIN 57466318778 Jakob Deluca MD NORTRIPTYLINE HCL 10 MG CAPS Week #1 take 1 in PM, then Week #2 and on take 2 in PM NORTRIPTYLINE HCL [id number] Jakob Deluca MD KETAMINE TOPICAL OINTMENT 8% apply to painful area 3-4 times daily KETAMINE TOPICAL OINTMENT 8% Jakob Deluca MD NORTRIPTYLINE HCL 10 MG CAPS Week #1 take 1 in PM, then Week #2 and on take 2 in PM NORTRIPTYLINE HCL [id number] Jakob Deluca MD ALPHA LIPOIC ACID CAPS ALPHA-LIPOIC ACID CAPS 53464127003 Jakob Deluca MD GABAPENTIN 600 MG TABS 6 po daily GABAPENTIN 70580158394 Jakob Deluca MD LABETALOL HCL 200 MG TABS 1/2 pill twice daily LABETALOL HCL 54567665286 Jakob Deluca MD FOLIC ACID 400 MCG 1 daily FOLIC ACID 400 MCG Jakob Deluca MD DIPHENOXYLATE-AT ROPINE 2.5-0.025 MG TABS 2 in AM, 1 in PM and 1 at hs DIPHENOXYLATE-AT ROPINE 20827491098 Jakob Deluca MD LABETALOL HCL 200 MG TABS 1/2 pill twice daily LABETALOL HCL 31688067159 Jakob Deluca MD SIMVASTATIN 20 MG TABS 1 daily SIMVASTATIN 79309641226 Jakob Deluca MD LIPITOR TABS ATORVASTATIN CALCIUM TABS 01337252671 Jakob Deluca MD LISINOPRIL 10 MG TABS 1 daily LISINOPRIL 17851891375 Jakob Deluca MD LABETALOL HCL TABS LABETALOL HCL TABS 51595057826 Jakob Deluca MD GABAPENTIN 600 MG TABS 8 po daily GABAPENTIN 08721010272 Jakob Deluca MD NORMYDINE NORMYDINE Jakob Deluca MD LABETALOL HCL TABS LABETALOL HCL TABS 54814810253 Jakob Deluca MD TRIAMTERENE-HCTZ 37.5-25 MG TABS every other day TRIAMTERENE-HCTZ 83524745485 Jakob Deluca MD LIDODERM 5 % PTCH apply 1/2 to 1 patch on each foot LIDOCAINE 00678435432 Jakob Deluca MD GABAPENTIN 300 MG CAPS 3 po tid GABAPENTIN 70616230769 Jakob Deluca MD VOLTAREN 1 % GEL apply 1 - 2 grams to painful areas on each foot up to 4 times a day DICLOFENAC SODIUM 24278758004 Jakob Deluca MD VOLTAREN 1 % GEL apply 1 - 2 grams to painful areas on each foot up to 4 times a day DICLOFENAC SODIUM 57224065852 Jakob Deluca MD TRAZODONE HCL 100 MG TABS 2 po qhs TRAZODONE HCL 65932675609 Jakob Deluca MD GABAPENTIN 600 MG TABS 2 po tid GABAPENTIN 81658329764 Jakob Deluca MD LIDODERM 5 % PTCH apply 1/2 to 1 patch on each foot LIDOCAINE 88234185673 Jakob Deluca MD GABAPENTIN 600 MG TABS 1 po qid GABAPENTIN 74541885305 Jakob Deluca MD GABAPENTIN 300 MG CAPS 3 po tid GABAPENTIN 06129321674 Jakob Deluca MD ASPIRIN 81 MG TBEC 1 daily ASPIRIN 36649817693 Jakob Deluca MD TESTOSTERONE ENANTHATE SOLN TESTOSTERONE ENANTHATE OIL 74047073264 Jakob Deluca MD NEURONTIN 300 MG CAPS 4 po tid GABAPENTIN 68568910394 Jakob Deluca MD NORTRIPTYLINE HCL 10 MG CAPS Week #1 take 1 po qhs, then Week #2 take 2 po qhs, Week #3 take 3 po qhs, and Week #4 and on take 4 po qhs. NORTRIPTYLINE HCL 92194054931 Jakob Deluca MD CYMBALTA 20 MG CPEP Week #1 take 1 po qhs, then Week #2 take 2 po qhs, then Week #3 and on take 3 po qhs DULOXETINE HCL 36176783637 Jakob Deluca MD GABAPENTIN 600 MG TABS 1 po qid GABAPENTIN 74764271558 Jakob Deluca MD NORTRIPTYLINE HCL 10 MG CAPS Week #1 take 1 po qhs, then Week #2 take 2 po qhs, Week #3 take 3 po qhs, and Week #4 and on take 4 po qhs. NORTRIPTYLINE HCL [id number] Jakob Deluca MD NEURONTIN 300 MG CAPS 4 po tid GABAPENTIN 12763827597 Jakob Deluca MD NORMYDINE NORMSHIRA Deluca MD TRIAMTERENE-HCTZ 37.5-25 MG TABS normadyne TRIAMTERENE-HCTZ 11478365768 Jakob Deluca MD LIPITOR TABS ATORVASTATIN CALCIUM TABS 34632646796 Jakob Deluca MD VIAGRA 50 MG TABS 1 po 30 - 60 minutes prior to intercourse SILDENAFIL CITRATE 75421349812 Jakob Deluca MD LEXAPRO 10 MG TABS 1 po daily ESCITALOPRAM OXALATE 35153376735 Jakob Deluca MD CYMBALTA 20 MG CPEP Week #1 take 1 po qhs, then Week #2 take 2 po qhs, then Week #3 and on take 3 po qhs DULOXETINE HCL 95967851106 Jakob Deluca MD VIAGRA 50 MG TABS 1 po 30 - 60 minutes prior to intercourse SILDENAFIL CITRATE 50621714633 Jakob Deluca MD NEURONTIN 300 MG CAPS 3 po tid GABAPENTIN 13582345759 Jakob Deluca MD NEURONTIN 300 MG CAPS 2 po tid GABAPENTIN 77997643940 Jakob Deluca MD LEXAPRO 10 MG TABS 1 po daily ESCITALOPRAM OXALATE 68962942860 Jakob Deluca MD CYMBALTA 30 MG CPEP 1 po qhs for 2 weeks DULOXETINE HCL 40175550875 Chloe Espinal RN CYMBALTA 60 MG CPEP 1 po qhs beginning in Week #3 and thereafter DULOXETINE HCL 83216110581 Jakob Deluca MD CYMBALTA 30 MG CPEP 1 po qhs for 2 weeks DULOXETINE HCL 00481372696 Jakob Deluca MD Medications Administered No information available. Allergies, Adverse Reactions, Alerts Allergy Name Reaction Description Start Date Severity Statu s Provider LATEX Critical Active Jakob Deluca MD Results Date Name Value Unit Range Flag Description Rx Refill: eRx Request for G ABAPENTIN 600MG [facility]_RR [id number] 24Z`GABAPENTIN 600MG```720``XAVI E 8 TABLETS DAILY DIRECTED`Generic For:*NEURONTIN 600MG TABS Generic For:*NEURONTIN 600MG TABS`4`0`7231746 2`[id number]`[facility] #*`[phone]` [id number]`` B e-scripts messen tiki refill request Internal Other: Authorizatio n - OBS PTSTAUTHDT 1 N PT Startin g Authorization Date Office Visit: NSLE SMOK STATUS Never smoker 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 smoking 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 Office Visit: 6M 09/30/17 12 [...] Yes Consent To Release information to the [employer]) Plan of Care Type Date Detail Pending [...] Procedures Code Procedure Name Date Entry Date [id number] MRI-Lumbar W/WO ORDERS Physical Therapy ORDERS Follow up ORDERS Follow up [facility]-[id number] Documentation of current medicatio ns ORDERS Follow up ORDERS Patient Instructions ORDERS Follow up [facility]-[id number] Documentation of current medicatio ns SCT-[id number] Other Referral SCT-[id number] Other Referral CPT-29590 PSG, with CPAP - 6yrs or older (29007) 20 20/04/20 ORDERS Sleep Study - [facility]NA 2 SCT-[id number] Documentation of current medicatio ns SCT-[id number] Consult [facility]-[id number] Documentation of current medicatio ns SCT-[id number] Documentation of current medicatio ns SCT-[id number] Documentation of current medicatio ns [id number] ProHance Nasir-based MR Contrast, 20 ml via l CPT-05900 MRI Pelvis (With & Without Contrast) 2010 CPT-73722 MRI Lumbar (With & Without Contrast) 2010 [...]
== END 2025-06-04 13:49 | disposition home or self-care (01) ==
PROVIDERS: Emergency Provider Emergency Medicine; PCP Internal Medicine
DX: S71.112A Laceration without foreign body, left thigh, initial encounter (principal); W29.3XXA Contact with powered garden and outdoor hand tools and machinery, initial encounter
CPT/HCPCS: 99282; 99283

== ENCOUNTER 2025-10-26 08:30 | Outpatient (CLI) | payer MEDICARE, BC, SELFPAY | END 2025-10-26 08:31 | disposition home or self-care (01) | LOC: NFLDREF 10-30 20:00 | PROVIDERS: PCP Internal Medicine; Referring Provider Internal Medicine; Visit Provider Internal Medicine | DX: I10 Essential (primary) hypertension (principal); E34.9 Endocrine disorder, unspecified; E78.5 Hyperlipidemia, unspecified | CPT/HCPCS: 80048; 80061; 84270; 84402; 84403 ==